=== PATIENT | female | born 1965 | race Caucasian/White ===

== ENCOUNTER 2021-06-30 21:17 | Emergency (ER) | payer MEDICAID, OTHER ==
[2021-06-30] MEDS ORDERED: Aspirin 81 MG Tab.Chew PO ONE (21:54)
--- NOTE | 2021-06-30 22:29 | EDM.PDOC ---
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 She states that she did machine puller over at that time called a friend who recommended she go to the ER after several minutes patient was able to drive on and she came to the emergency room for further evaluation. Patient states this time symptoms are mostly resolved she does have some tightness in her shoulder arm on the left side she also reports that she did have an upset stomach and some nausea but no vomiting and she had some lightheaded dizziness during acute episode. Patient denies any previous symptoms of this nature PMH--myasthenia gravis Meds--patient does not know her meds nor does she have a list; EMR reviewed NKDA Tob/Drugs--denies EtOH--rare glass of wine Patient denies COVID infection history nor has she received her COVID immunization Onset: Today, Sudden Onset Time: 20:00 Chest Pain Score (Numeric/FACES): 10 - Related Data Allergies Allergy/AdvReac Type Severity Reaction Status Date / Time No Known Allergies Allergy Verified 06/30/21 21:57 Home Meds: Home Meds Baclofen 10 mg PO BEDTIME 06/30/21 [History] Cyclobenzaprine [Flexeril] 1 tab PO BEDTIME PRN 06/30/21 [History] Glycopyrrolate [Robinul] 1 mg PO QID 06/30/21 [History] Levothyroxine Sodium 1 tab PO DAILY 06/30/21 [History] Lifitegrast [Xiidra] 1 each OP ASDIRECTED 06/30/21 [History] Pyridostigmine [Mestinon] 60 mg PO QID 06/30/21 [History] prednisoLONE Acetate [Prednisolone Acetate] 1 drop EYEBOTH ASDIRECTED 06/30/21 [History] traZODone 50 - 100 mg PO BEDTIME PRN 06/30/21 [History] Past Medical History HEENT History: Reports: Impaired Vision Genitourinary History: Reports: Renal Calculus [employer] History: Reports: Musculoskeletal History: Reports: Other (See Below) Other Musculoskeletal History: mysteniastemia gravis Endocrine/Metabolic History: Reports: Hyperthyroidism, Vitamin D Deficiency - Infectious Disease History Infectious Disease History: Reports: Chicken Pox - Past Surgical History Female Surgical History: Reports: Tubal Ligation Endocrine Surgical History: Reports: Thyroidectomy Social & Family History - Tobacco Use Tobacco Use Status *Q: Never Tobacco User - Recreational Drug Use Recreational Drug Use: No ED ROS GENERAL - Review of Systems Review Of Systems: Comprehensive ROS is negative, except as noted in HPI. Constitutional: Reports: No Symptoms HEENT: Reports: No Symptoms Respiratory: Reports: Shortness of Breath Cardiovascular: Reports: Chest Pain, Lightheadedness Endocrine: Reports: No Symptoms GI/Abdominal: Reports: Nausea : Reports: No Symptoms Musculoskeletal: Reports: Neck Pain (left side), Shoulder Pain (left side), Arm Pain (left side) Skin: Reports: No Symptoms Neurological: Reports: No Symptoms. Denies: Headache, Paresthesia, Trouble Speaking, Weakness, Change in Speech Psychiatric: Reports: No Symptoms Hematologic/Lymphatic: Reports: No Symptoms Immunologic: Reports: No Symptoms ED EXAM, GENERAL - Physical Exam Exam: See Below Exam Limited By: No Limitations General Appearance: Alert, WD/WN, No Apparent Distress Eye Exam: Bilateral Eye: EOMI, Normal Inspection, PERRL Ears: Normal External Exam, Hearing Grossly Normal Nose: Normal Inspection Throat/Mouth: Normal Inspection, Normal Lips, Normal Oropharynx, Normal Voice, No Airway Compromise Head: Atraumatic, Normocephalic Neck: Normal Inspection, Supple, Non-Tender, Full Range of Motion Respiratory/Chest: No Respiratory Distress, Lungs Clear, Normal Breath Sounds, Chest Non-Tender Cardiovascular: Normal Peripheral Pulses, Regular Rate, Rhythm, No Edema, No Murmur Peripheral Pulses: 2+: Radial (L), Radial (R) GI/Abdominal: Normal Bowel Sounds, Soft, Non-Tender, No Distention (Female) Exam: Deferred Rectal (Female) Exam: Deferred Back Exam: Normal Inspection Extremities: Normal Inspection, Normal Range of Motion, No Pedal Edema, Normal Capillary Refill Neurological: Alert, Oriented, CN II-XII Intact, Normal Cognition, Normal Gait, No Motor/Sensory Deficits Psychiatric: Normal Affect, Normal Mood Skin Exam: Warm, Dry, Intact, Normal Color #1 Interpretation EKG Date: 06/30/21 Time: 21:32 (Read by physician at 2135 no STEMI noted) Rhythm: NSR Rate (Beats/Min): 97 [place]: Normal (Possible left atrial enlargement normal axis) P-Wave: Present (KS interval 160) QRS: Normal (QRS duration 90) ST-T: Normal QT: Normal (QT/QTc 358/455) EKG Interpretation Comments: Normal EKG Course - Vital Signs Text/Narrative:: 2245--in room to discuss with patient today's ER findings and further recommendations and care to include repeat troponin at midnight. Questions were answered at this time patient did question whether she needed to have the repeat test at midnight since she is no longer having pain or discomfort I again discussed with her that initial elevations are usually seen in 4 to 6 hours and is recommended that we repeat the troponin level at 4 hours post onset since she is currently pain-free patient verbalized understanding agree with plan of care 0040--troponin at 4 hours after onset of chest pain episode is -2 - troponins that are negative (<0.017) and patient is currently symptom-free. This time will discharge home with PCM follow-up for further evaluation and care. D iscussed with patient return to the emergency room should she have any resumption of symptoms of concern verbalized understanding and agreement with plan of care ready for discharge Last Recorded V/S: Last Vital Signs Temp 97.4 F 06/30/21 21:54 Pulse 94 06/30/21 22:02 Resp 16 06/30/21 22:02 BP 138/70 06/30/21 22:02 Pulse Ox 98 06/30/21 22:02 - Orders/Labs/Meds Orders: Active Orders 24 hr Category Date Time Status Cardiac Monitoring [RC] .As Directed Care 06/30/21 21:54 Active Pulse Oximetry [RC] CONTINUOUS Care 06/30/21 21:54 Active EKG 12 Lead [EK] Stat Ther 06/30/21 21:55 Ordered Labs: Laboratory Tests 06/30/21 06/30/21 06/30/21 Range/Units 21:54 22:05 23:55 WBC 6.8 (4.5-11.0) K/uL RBC 4.60 (3.30-5.50) M/uL Hgb 14.6 (12.0-15.0) g/dL Hct 42.9 (36.0-48.0) % MCV 93 (80-98) fL MCH 32 H (27-31) pg MCHC 34 (32-36) % Plt Count 144 L (150-400) K/uL Neut % (Auto) 71.9 H (36-66) % Lymph % (Auto) 17.0 L (24-44) % [place] % (Auto) 9.2 H (2-6) % Eos % (Auto) 1.8 L (2-4) % Baso % (Auto) 0.1 (0-1) % Sodium 141 (140-148) mmol/L Potassium 3.9 (3.6-5.2) mmol/L Chloride 105 (100-108) mmol/L Carbon Dioxide 26 (21-32) mmol/L Anion Gap 10.4 (5.0-14.0) mmol/L BUN 20 H (7-18) mg/dL Creatinine 1.0 (0.6-1.0) mg/dL Est Cr Clr Drug Dosing 52.58 mL/min Estimated GFR (MDRD) 58 L (>60) Glucose 76 (74-106) mg/dL Calcium 8.9 (8.5-10.1) mg/dL Magnesium 2.3 (1.8-2.4) mg/dL Total Bilirubin 0.3 (0.2-1.0) mg/dL AST 25 (15-37) U/L ALT 48 (12-78) U/L Alkaline Phosphatase 63 (46-116) U/L Troponin I < 0.017 < 0.017 (0.000-0.056) ng/mL Total Protein 7.3 (6.4-8.2) g/dL Albumin 3.9 (3.4-5.0) g/dL Globulin 3.4 (2.3-3.5) g/dL Albumin/Globulin Ratio 1.1 L (1.2-2.2) Meds: Medications Discontinued Medications Generic Name Dose Route Start Last Admin Trade Name Tahmina PRN Reason Stop Dose Admin Aspirin 324 mg 06/30/21 21:54 06/30/21 22:15 Aspirin 81 Mg Tab.Chew PO 06/30/21 21:55 324 mg ONETIME ONE Administration Departure - Departure Time of Disposition: 00:41 Disposition: Home, Self-Care 01 Condition: Good Clinical Impression: Chest pain Instructions: Nonspecific Chest Pain, Adult, [id number] Referrals: PCP,Unknown [Primary Care Provider] - Forms: ED Department Discharge Additional Instructions: It is recommended at this time that you take a daily baby aspirin until you receive for further guidance from your primary care provider/family physician As discussed your heart enzyme/troponin was negative x2 tests and you did not have any changes in the EKG or electricity of your heart. At this time given that you are symptom-free and negative evaluation here in the ER I will discharge you home with primary care/family physician follow-up for further evaluation and care Return to the emergency room should you have any recurrence of symptoms or concerns Sepsis Event Note (ED) - Evaluation Sepsis Screening Result: No Definite Risk - Focused Exam Vital Signs: Vital Signs Temp Pulse Resp BP Pulse Ox 06/30/21 22:02 94 16 138/70 98 06/30/21 21:54 97.4 F 106 H 17 153/87 H 97 - My Orders Last 24 Hours: My Active Orders 06/30/21 21:54 Cardiac Monitoring [RC] .As Directed Pulse Oximetry [RC] CONTINUOUS 06/30/21 21:55 EKG 12 Lead [EK] Stat - Assessment/Plan Last 24 Hours: My Active Orders 06/30/21 21:54 Cardiac Monitoring [RC] .As Directed Pulse Oximetry [RC] CONTINUOUS 06/30/21 21:55 EKG 12 Lead [EK] Stat
== END 2021-07-01 01:01 | disposition home or self-care (01) ==
LOC: JP.ED 21:17
DX: R07.9 Chest pain, unspecified (principal); E05.90 Thyrotoxicosis, unspecified without thyrotoxic crisis or storm; Z79.899 Other long term (current) drug therapy
CPT/HCPCS: 36415; 80053; 83735; 84484; 85025; 93005; 99285; A9270